=== PATIENT | male | born 1980 | race Caucasian/White ===

== ENCOUNTER 2016-08-18 20:08 | Emergency (ER) | payer OTHER ==
[~2016-08-18] VITALS: Ht 175.3 cm; Wt 113.4 kg
[2016-08-18 20:39] LABS: ABSOLUTE BASOPHIL COUNT 0 /CUMM (0.0-0.2); ABSOLUTE EOSINOPHIL COUNT 0.1 /CUMM (0.0-0.7); ABSOLUTE GRANULOCYTE CT 4.7 /CUMM (1.4-6.5); ABSOLUTE LYMPH COUNT 3.1 /CUMM (1.2-3.4); ABSOLUTE MONOCYTE COUNT 0.6 /CUMM (0.10-0.60); BASOPHIL % 0.6 % (0.0-2.0); EOSINOPHIL % 1.1 % (0-5); GRANULOCYTE % 54.9 % (42.2-75.2); MEAN CORPUSCULAR HGB 29.5 PG (27.0-31.0); MEAN CORPUSCULAR HGB CONC 33.9 G/DL (33.0-37.0); MEAN CORPUSCULAR VOLUME 86.9 FL (80.0-94.0); MEAN PLATELET VOLUME 10.8 FL (7.4-10.4); PLATELET COUNT 174 /CUMM (130-400); RBC DISTRIBUTION WIDTH 12.8 % (11.5-14.5); RED BLOOD CELL CT 5.52 /CUMM (4.70-6.10); WHITE BLOOD CELL COUNT 8.6 /CUMM (4.8-10.8)
--- NOTE | 2016-08-18 22:02 | ED NEURO DEFICIT/STROKE ---
History of Present Illness General Chief Complaint: General Adult Stated Complaint: LEFT SIDE OF FACE NUMB SINCE THIS AM Source: patient Exam Limitations: no limitations Vital Signs & Intake/Output Vital Signs & Intake/Output Vital Signs Date Time Temp Pulse Resp B/P Pulse O2 O2 Flow FiO2 Ox Delivery Rate 08/18 2213 97.1 70 18 158/84 97 Room Air 08/18 2036 98.3 66 18 144/96 97 Room Air Allergies Coded Allergies: NO KNOWN ALLERGIES (05/31/13) Reconcile Medications Methylprednisolone. (Medrol) 4 MG TAB.DS.PK 1 DP PO AD BELLS PALSY 6 on day 1 then reduce by one tablet daily until gone Triage Note: RECEIVED 35 YO MALE C/O LEFT FACIAL NUMBNESS STARTED WHEN HE WOKE UP THIS AM. NO UNILATERAL WEAKNESS NOTED. UNABLE TO LIFT LEFT EYEBROW. NO SLURRED SPEECH. PT ALSO REPORTS PAIN BEHIND LEFT JAW X 2 DAYS. Triage Nurses Notes Reviewed? yes Onset: Abrupt Duration: day(s):, constant, getting worse Timing: recent history New Weakness: left facial Vision Problem? No Glaucoma? No HPI: 35-year-old male comes into emergency room complaining that the left side of his face feels numb as well as the fact he has not been able to lift his face. Patient has a history of Mak's palsy and it feels similar. He denies any headache or vomiting. Denies any weakness in his upper or lower extremities. Denies any confusion. Denies any gait abnormalities. He was diagnosed with Mak's palsy some years back and they never found a clear cause. Past History Travel History Traveled to [place] past 21 day No Medical History Any Pertinent Medical History? see below for history Neurological: BELLS PALSY EENT: NONE Cardiovascular: NONE Respiratory: NONE Gastrointestinal: NONE Hepatic: NONE Renal: NONE Musculoskeletal: NONE Psychiatric: NONE Endocrine: NONE Blood Disorders: NONE Cancer(s): NONE Surgical History Surgical History: non-contributory Psychosocial History What is your primary language Kittitian Tobacco Use: Quit >30 days ago Family History Hx Contributory? No Review of Systems Review of Systems Constitutional: Reports: no symptoms. EENTM: Reports: no symptoms. Respiratory: Reports: no symptoms. Cardiovascular: Reports: no symptoms. GI: Reports: no symptoms. Genitourinary: Reports: no symptoms. Musculoskeletal: Reports: see HPI. Skin: Reports: no symptoms. Neurological/Psychological: Reports: see HPI. Hematologic/Endocrine: Reports: no symptoms. Immunologic/Allergic: Reports: no symptoms. All Other Systems: Reviewed and Negative Physical Exam Physical Exam General Appearance: well developed/nourished, no apparent distress, alert Head: atraumatic Eyes: Bilateral: normal appearance, PERRL, EOMI. Ears, Nose, Throat: moist mucous membrane, hearing grossly normal Neck: normal inspection Respiratory: normal breath sounds, no respiratory distress Cardiovascular: regular rate/rhythm Back: normal inspection Extremities: normal range of motion Cranial Nerves: normal hearing, normal speech, PERRL, facial droop (left complete incl forhead) Coordination/Gait: normal finger to nose, normal gait Motor/Sensory: 5 out of 5 strength upper and lower extremities, Skin: intact, normal color Core Measures CVA/TIA Diagnosis: No Severe Sepsis Present: No Septic Shock Present: No Progress Differential Diagnosis: acute glaucoma, Mak's Palsy, drug intoxication, electrolyte imbalance, encephalitis, hypoglycemia, intracranial Hem., intracranial mass/tumor, meningitis, migraine WAGGONER, seizure disorder, stroke, subarachnoid Hem., vertebrobasilar insuff. Plan of Care: Orders Procedure Date/time Status LYME TITRE 08/18 2024 Active COMPREHENSIVE METABOLIC PANEL 08/18 2024 Complete CBC WITHOUT DIFFERENTIAL 08/18 2024 Complete Laboratory Tests 08/18/162031: Anion Gap 12, Estimated GFR > 60, BUN/Creatinine Ratio 16.7, Glucose 174 H, Calcium 10.0, Total Bilirubin 1.0, AST 49, ALT 119 H, Alkaline Phosphatase 54, Total Protein 8.1, Albumin 4.8, Globulin 3.3, Albumin/Globulin Ratio 1.5, CBC w Diff NO MAN DIFF REQ, RBC 5.52, MCV 86.9, MCH 29.5, RDW 12.8, MPV 10.8 H, Gran % 54.9, Lymphocytes % 36.0, Monocytes % 7.4, Eosinophils % 1.1, Basophils % 0.6, Absolute Granulocytes 4.7, Absolute Lymphocytes 3.1, Absolute Monocytes 0.6, Absolute Eosinophils 0.1, Absolute Basophils 0, PUBS MCHC 33.9, Lyme Disease Antibody Pending Initial ED EKG: none Comments: Shared decision making with patient. Symptoms seem to be most consistent with Mak's palsy. Patient clinically looks well. Neurologically intact otherwise. Patient has complete left-sided facial droop. At this time I do not feel CT scan is necessary in this was also discussed with Dr. Mak. Patient was offered CT of head but he agrees with my plan of care and decline. Patient will follow up with his primary care doctor tomorrow. I spoke with Dr. Flores who is going to follow-up the patient in the office and agrees the plan of care. Patient was started on prednisone. Etiology of Mak's palsy unclear at this time. Lyme titer sent. Lyme titer will be followed up by his primary care doctor. Departure Departure Disposition: HOME OR SELF CARE Condition: Stable Clinical Impression Primary Impression: Mak's palsy Referrals: EMY SIDDIQUI,AKILAH Ferrera (PCP/Family) Additional Instructions: Take Medrol Dosepak as prescribed. Follow-up with your primary care doctor. Return if any concerns worsening symptoms. Please go over all results of today's visit with your primary care doctor. Contact your primary care doctor to let them know you were here in the emergency room. There may be nonspecific findings which may not be related to your visit today here in the emergency room but may require further evaluation and chronic monitoring by your primary care doctor. If you had a laceration today the chance of foreign body always remains. You should follow-up with your primary care doctor for recheck in 3-5 days for a wound check. If you had an x-ray done there is a chance that a fracture could have been missed on initial read and you should follow-up with your primary care doctor for repeat x-rays if symptoms persist. If your blood pressure was elevated here in the emergency room please have rechecked by her primary care doctor within the next 48 hours by your primary care doctor. If you were prescribed a narcotic here in the emergency room or any type of controlled substances you're not allowed to drive while taking this medication or operate any type of heavy machinery. Narcotics can make you feel lightheaded dizziness nausea and can cause constipation. You may need to steel pickler a stool softener. Thank you for choosing [facility] emergency room. Please return to the emergency room immediately if you have any other concerns worsening of symptoms. Departure Forms: Customer Survey General Discharge Information Prescriptions: Current Visit Scripts Methylprednisolone. (Medrol) 1 DP PO AD #1 DP 6 on day 1 then reduce by one tablet daily until gone
[2016-08-18] MEDS ORDERED: MEDROL4 M2 PO (22:09)
[2016-08-18 22:14] VITALS: BP 158/84
== END 2016-08-18 22:15 ==
LOC: ERH 20:08
PROVIDERS: Emergency Medicine
DX: G51.0 Bell's palsy (principal)
CPT/HCPCS: 86618